=== PATIENT | female | born 1940 | race Hispanic/Latino ===

== ENCOUNTER → 2024-07-10 | Outpatient (CLI) | payer OTHER ==
[~2024-07-10] MED LIST: IOHEXOL-350 75 ML VIAL IV ONE
--- NOTE | 2024-07-10 12:12 | HMCIMG ---
CT ABDOMEN W/WO 3 PHASE HISTORY: Other specified disorder of kidney and ureter COMPARISON: None TECHNIQUE: Multiple sequential axial images of the abdomen were obtained from the dome of the diaphragm through iliac crests. Patient was given 75 cc of Omnipaque through intravenous route. Oral contrast was given. Three-phase dynamic imaging technique was used. FINDINGS: No pleural effusion is seen bilaterally. There is no evidence of parenchymal disease or pulmonary nodule of the visualized lower lungs. Coronary arterial calcifications are seen. The heart is borderline enlarged. Degenerative changes are seen of the thoracolumbar spine. There is elevation of left hemidiaphragm. Stomach is poorly distended with apparent wall thickening. A small hiatal hernia is seen. Post cholecystectomy changes are seen. There are bilateral renal cortical scarring. No bowel obstruction is seen. There is diverticulosis..The liver, spleen, adrenal glands and pancreas are unremarkable. There is no evidence of hydronephrosis bilaterally. No evidence of renal stone is seen. Fecal material is seen in the colon. There are normal-sized retroperitoneal and mesenteric lymph nodes. No ascites is seen. Atherosclerotic changes are present. IMPRESSION: 1. Nonspecific gastric wall thickening. Small hiatal hernia. No ascites. Elevation of left hemidiaphragm. No bowel obstruction. CT was performed with one or more following dose reduction techniques: automated exposure control, adjustment of the mA and kv according to patient's size, or use of a iterative reconstruction technique.
== END | disposition home or self-care (01) ==
LOC: RAH 09:20
PROVIDERS: ATTEND Family Medicine
DX: K44.9 Diaphragmatic hernia without obstruction or gangrene (principal); K57.90 Diverticulosis of intestine, part unspecified, without perforation or abscess without bleeding; N28.89 Other specified disorders of kidney and ureter; K31.89 Other diseases of stomach and duodenum; J98.6 Disorders of diaphragm; I25.10 Atherosclerotic heart disease of native coronary artery without angina pectoris; M47.815 Spondylosis without myelopathy or radiculopathy, thoracolumbar region; I70.90 Unspecified atherosclerosis; Z90.49 Acquired absence of other specified parts of digestive tract
CPT/HCPCS: 74170; Q9967